=== PATIENT | male | born 1970 | race Caucasian/White ===

== ENCOUNTER 2021-11-13 11:33 | Emergency (ER) | payer OTHER, SELFPAY ==
--- NOTE | ~2021-11-13 | XR_ITS ---
EXAMINATION: XR SHOULDER, LEFT CLINICAL INFORMATION: Pain COMPARISON: None TECHNIQUE: 5 views of the left shoulder. FINDINGS: No acute fracture or dislocation. Moderate acromioclavicular arthritis. No abnormal soft tissue calcification. Glenohumeral joint space is maintained. No suspicious findings in the visualized left lung. XR/XR shoulder LT min 2V IMPRESSION: No radiographic evidence of acute fracture. Moderate acromioclavicular arthritis.
[2021-11-13 11:42] VITALS: BP 154/87; PULSE 85; RESP 18; TEMP 36.4; O2SAT 98; BMI 34.7
--- NOTE | 2021-11-13 15:51 | PC.NURSE ---
LWT at this time-no answer. presumed lwt
== END 2021-11-13 16:11 | disposition left against medical advice (07) ==
LOC: HO.ED 16:09
PROVIDERS: Emergency Provider Emergency Medicine
DX: M25.512 Pain in left shoulder (principal)
CPT/HCPCS: 73030; 99281; 99283